=== PATIENT | male | born 1970 | race Caucasian/White ===

== ENCOUNTER 2022-12-20 14:56 | Emergency (ER) | payer BC ==
[2022-12-20 15:14] VITALS: BP 150/81; PULSE 79; RESP 18; TEMP 98.1; BMI 33.7
[2022-12-20] MEDS ORDERED: ALBUTEROL SO4 2.5/IPRATROPIUM 0.5 INH SOL 3 ML VIAL.NEB. NEB ONE (17:30)
[2022-12-20 17:34] LABS: BASO % 0.6 % (0-2.0); EOS % 2.3 % (0-4.5); HEMATOCRIT 44.8 % (35.4-49); HEMOGLOBIN 15.5 GM/dL (11.7-16.9); LYMPH % 32.9 % (8-40); MCH 28.8 pg (25.7-33.7); MCHC 34.7 g/dl (32.0-35.9); MEAN PLT VOLUME 8.8 fl (7.5-11.1); NEUT % 57.2 % (42.8-82.8); PLATELET COUNT 248 10^3/uL (134-434); RBC 5.39 M/mm3 (4.00-5.60); RDW 13.4 % (11.9-15.9)
[2022-12-20 18:04] LABS: ALBUMIN 3.9 g/dl (3.4-5.0); BILIRUBIN,TOTAL 0.5 mg/dL (0.2-1); CREATININE 1.4 mg/dL (0.55-1.3); PHOSPHOROUS 3.2 mg/dL (2.5-4.9); TOT PROT 7.8 g/dl (6.4-8.2); URIC ACID 4.4 mg/dL (2.6-7.2)
[2022-12-20 18:48] LABS: HIV INTERPRETATION NEGATIVE (NEGATIVE)
== END 2022-12-20 17:28 | disposition home or self-care (01) ==
LOC: JER 14:56 → JERFT 14:56
DX: S63.23 Subluxation of proximal interphalangeal joint of finger (principal); W46.1XXA Contact with contaminated hypodermic needle, initial encounter
CPT/HCPCS: 36415; 80053; 82465; 82977; 83615; 84100; 84478; 84550; 85025; 86704; 86803; 87340; 87389; 87517; 99283-25